=== PATIENT | male | born 1990 | race Caucasian/White ===

== ENCOUNTER 2017-02-15 10:03 | Emergency (ER) | payer OTHER ==
[~2017-02-15] VITALS: Ht 180.3 cm; Wt 58.3 kg
[2017-02-15 10:06] VITALS: TEMP 36.8; Ht 180.3 cm; Wt 58.3 kg
--- NOTE | 2017-02-15 11:43 | DIAGNOSTIC IMAGING REPORT ---
CT SCAN OF THE FACIAL BONES WITHOUT IV CONTRAST CLINICAL HISTORY: Left orbital injury. COMPARISON STUDY: No priors. TECHNIQUE: High-resolution CT scan of the facial bones is performed. Images are reviewed in the axial, sagittal, and coronal planes. IV contrast was not administered for this examination. 3-D reformats are created and assessed. CT DOSE: 675.49 mGy.cm FINDINGS: The skeletal structures are well mineralized. There are comminuted fractures involving the anterior and posterior wall of the left maxillary antrum with distracted fragments. There is also a minimally depressed fracture of the left zygomatic arch. There is a comminuted and minimally depressed fracture of the left orbital floor, with no evidence of extraocular muscle entrapment. Fracture also involves the lateral wall of the left orbit. There is a minimally depressed fracture of the anterior left maxilla on axial image #185. There is stranding and fluid seen within the left lateral extraconal orbital space consistent with orbital hematoma. The right bony orbit is intact and the right-sided orbital contents are normal in appearance. The right zygomatic arch, the nasal bones, and pterygoid plates are preserved. The mandible is intact. There is layering blood within the left maxillary antrum. The remaining paranasal sinuses and the mastoid air cells are clear. The visualized calvarium and upper cervical spine are maintained. 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 Partially imaged brain parenchyma is within normal limits. There is a large periapical lucency identified around the left central maxillary incisor. Additional dental caries are identified. There is left periorbital and premalar scalp hematoma. There is also induration of the left facial soft tissues. IMPRESSION: 1. There are comminuted fractures with depressed fragments involving the anterior and posterior wall of the left maxillary antrum. Blood is noted in the left maxillary antrum. 2. There is a minimally depressed and comminuted left orbital floor fracture. A mildly distracted fracture is also seen involving the lateral wall of the left orbit. 3. There is a depressed fracture of the left zygomatic arch. 4. There is a minimally depressed fracture involving the anterior cortex of the left maxilla. 5. There is stranding and fluid seen within the lateral extraconal space of the left orbit consistent with orbital hematoma. 6. Left periorbital and facial soft tissue injury. 7. There is a large periapical lucency identified involving the left central maxillary incisor. Additional dental caries are noted. Follow-up with dentistry is recommended when the patient is clinically able. Electronically signed by: Luis Armando Warren M.D. 02/15/2017 11:42 AM Dictated Date/Time: 02/15/2017 11:23 AM
[2017-02-15] MEDS ORDERED: AMOX875T PO ×2 (12:37→12:41)
[2017-02-15] MEDS ORDERED: ONDA4TAB10 SL (12:37)
[2017-02-15] MEDS ORDERED: HYDR-5688 PO ×2 (12:37→12:41)
[2017-02-15] MEDS ORDERED: IBUP600T44 PO (12:41)
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
[2017-02-15 12:55] VITALS: BP 121/78; PULSE 88; O2SAT 98
[2017-02-24] MEDS ORDERED: HYDR-5688 PO (08:26)
[2017-02-24] MEDS ORDERED: IBUP-1450 PO (08:26)
== END 2017-02-15 12:52 | disposition home or self-care (01) ==
LOC: C.EDB 10:04 → C.EDA 12:52
DX: S02.32XA Fracture of orbital floor, left side, initial encounter for closed fracture (principal); S02.92XA Unspecified fracture of facial bones, initial encounter for closed fracture; Z04.71 Encounter for examination and observation following alleged adult physical abuse; S05.12XA Contusion of eyeball and orbital tissues, left eye, initial encounter; W50.0XXA Accidental hit or strike by another person, initial encounter